=== PATIENT | female | born 1950 | race Caucasian/White ===

== ENCOUNTER 2018-03-04 19:28 | Inpatient (IN) | payer MEDICARE ==
[~2018-03-04] VITALS: Ht 170.2 cm; Wt 123.6 kg
[~2018-03-04 19:28] MED LIST: CARVEDILOL25 MG PO; GABAPENTIN600 MG PO; LISINOPRIL10 MG PO; METFORMIN HCL1000 M1 PO
--- OUTSIDE RECORDS SUMMARY | 2018-03-04 19:30 | XMS REPORT | Clinical Summary ---
Author Author [facility] Organization [facility] Address Unknown Phone Unavailable Care Team Providers Care Human Resources Officer Name Role Phone Sara Jones MD PCP Allergies Active Allergy Reactions Severity Noted Date Comments Cyclobenzaprine Anaphylaxis High Latex Rash Low 03/31/2017 Morphine Anaphylaxis High Nsaids (Non-Steroidal Hives 03/31/2017 Anti-Inflammatory Drug) Tramadol Anaphylaxis High 03/31/2017 Current Medications Prescription Sig. Disp. Refills Start End Date Status Date furosemide (LASIX) 80 mg 80 mg 2 (two) times a 02/23/20 Active tablet day. 1 po bid 17 gabapentin (NEURONTIN) Take 800 mg by mouth 3 02/28/20 Active 800 mg tablet (three) times a day. 1 po 17 tid glimepiride (AMARYL) 4 MG Take 4 mg by mouth 2 02/23/20 Active tablet (two) times a day. 1 po 17 bid LANTUS SOLOSTAR 100 Inject 70 Units under the 02/10/20 Active unit/mL injection (pen) skin nightly. qd 17 lisinopril Take 5 mg by mouth daily. 02/23/20 Active (PRINIVIL,ZESTRIL) 5 mg 1 po qd 17 tablet metFORMIN (GLUCOPHAGE) 2 po bid 01/07/20 Active 500 mg tablet 17 nortriptyline (PAMELOR) Take 10 mg by mouth 3 03/10/20 Active 10 MG capsule (three) times a day. 1 po 17 tid pantoprazole (PROTONIX) Take 40 mg by mouth 03/10/20 Active 40 MG EC tablet daily. 1 po qd 17 LYRICA 50 mg capsule Take 50 mg by mouth 2 03/10/20 Active (two) times a day. 1 po 17 bid sertraline (ZOLOFT) 50 MG TAKE ONE (1) TAB(S) ONCE 3 03/22/20 Active tablet A DAY BY MOUTH FOR 30 17 DAYS. sulfamethoxazole-trimetho Take 1 tablet by mouth 02/29/20 Active prim (BACTRIM DS) 800-160 once. 1 po bid 17 mg per tablet INSULIN NPH HUM/REG Inject 50 Units under the Active INSULIN HM (HUMULIN 70/30 skin 2 (two) times a day. SUBQ) thyroid, pork, (ARMOUR Take 60 mg by mouth Active THYROID) 60 mg tablet daily. potassium chloride Take 10 mEq by mouth Active (KLOR-CON 10) 10 MEQ CR daily. Pt states she tablet takes it when her legs start to cramp aspirin (ECOTRIN) 81 MG Take 81 mg by mouth Active enteric coated tablet daily. KRILL OIL ORAL Take 1 capsule by mouth Active daily. VITAMIN B COMPLEX VIT C Take by mouth daily. Active NO.4 (SUPER B COMPLEX + C ORAL) metoprolol succinate XL TAKE ONE (1) TABLET(S) BY 4 04/08/20 Active (TOPROL-XL) 50 mg 24 hr MOUTH NIGHTLY. 17 tablet metOLazone (ZAROXOLYN) TAKE ONE (1) TABLET(S) BY 0 04/06/20 Active 2.5 MG tablet MOUTH ONCE DAILY 17 NEEDED IF WEIGHT GOES UP 2 TO 3 POUNDS OR NEEDED IF SWELLING IS BAD. ALPRAZolam (XANAX) 0.5 MG Take 0.5 mg by mouth Active tablet nightly as needed for anxiety. mupirocin (BACTROBAN) 2 % Apply 1 application Active ointment topically as needed. cholecalciferol, vitamin Take by mouth. Active D3, (VITAMIN D3) 5,000 unit tablet evolocumab (REPATHA Inject 140 mg under the Active SYRINGE) 140 mg/mL skin every 14 (fourteen) syringe injection days. carvedilol (COREG) 3.125 1 po bid 02/25/20 04/13/20 Discontin MG tablet 17 17 ued FOLIC Take by mouth daily. 04/13/20 Discontin ACID/MULTIVIT-MIN/LUTEIN 17 ued (CENTRUM SILVER ORAL) acetaminophen-codeine Take 1-2 tablets by mouth 30 tablet 0 04/25/20 05/05/20 (TYLENOL WITH CODEINE #3) every 4 (four) hours as 17 17 300-30 mg per tablet needed for moderate pain for up to 10 days. 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 (Primary Dx); Knee instability, right; Fall, initial encounter; Contusion of left knee, initial encounter; Contusion of right knee, initial encounter 05/20/2017 Office Visit Orthopedic Surgery Cezar Jordan MD Carpal tunnel syndrome on right (Primary Dx); Trigger finger of right thumb; Trigger finger, right ring finger; Aftercare following surgery 05/06/2017 [facility] Orthopedic Surgery Cezar oJrdan MD Encounter 05/06/2017 Procedure Pass Orthopedic Surgery 05/06/2017 Surgery Orthopedic Surgery Cezar Jordan MD RELEASE, CARPAL TUNNEL 05/06/2017 Procedure Pass Orthopedic Surgery 05/05/2017 Telephone Orthopedic Surgery Joycelyn Lovett MA 05/05/2017 Telephone Orthopedic Surgery Joycelyn Lovett MA 04/25/2017 Pre-Admit Pre-Admission Testing Cezar Jordan MD Preop examination Testing (Primary Dx) Appointment 04/25/2017 Office Visit Orthopedic Surgery Cezar Jordan MD Trigger finger, right ring finger (Primary Dx); Carpal tunnel syndrome on right; Carpal tunnel syndrome, left 04/25/2017 Anesthesia Orthopedic Surgery Varsha Craft, LABOR UTILIZATION SUPERINTENDENT Event 04/13/2017 Procedure visit Neurology Jing Zambrano MD Diabetic polyneuropathy associated with type 2 diabetes mellitus (Primary Dx); Carpal tunnel syndrome, bilateral upper limbs; Lesion of ulnar nerve, bilateral 04/04/2017 Office Visit Orthopedic Surgery Cezar Jordan MD Pain in right hand (Primary Dx); Trigger finger, right ring finger; Primary localized osteoarthrosis of right hand 03/31/2017 Office Visit Neurology Jing Zambrano MD Uncontrolled type 2 diabetes mellitus with other circulatory complication (Primary Dx); Diabetic polyneuropathy associated with type 2 diabetes mellitus; Skin sensation disturbance; Trigger finger of right hand, unspecified finger after 03/03/2017 Family History Medical History Relation Name Comments Diabetes Brother Diabetes Father Heart attack Father Stroke Father Dementia Mother Hypertension Mother Stroke Mother Dementia Sister Diabetes Sister Hypertension Sister Thyroid disease Sister Relation Name Status Comments Brother Father Mother Sister Social History Tobacco Use Types Packs/Day Years Used Date Passive Smoke Exposure - 48 Never Smoker Smokeless Tobacco: Never Used Alcohol Use Drinks/Week oz/Week Comments No Sex Assigned at Date Recorded Not on file Last Filed Vital Signs Vital Sign Reading Time Taken Blood Pressure 118/70 05/06/2017 10:36 AM CDT Pulse 69 05/06/2017 10:36 AM CDT Temperature 36.7 C (98 F) 05/06/2017 10:36 AM CDT Respiratory Rate 18 05/06/2017 10:36 AM CDT Oxygen Saturation 100% 05/06/2017 10:36 AM CDT Inhaled Oxygen - - Concentration Weight 125 kg (276 lb 7 oz) 05/06/2017 7:15 AM CDT Height 170.2 cm (5' 7") 05/06/2017 7:15 AM CDT Body Mass Index 43.3 05/06/2017 7:15 AM CDT Plan of Treatment Health Maintenance Due Date Last Done Comments FOOT EXAM 1962 OPHTHALMOLOGY EXAM 1962 URINE MICROALBUMIN 1962 PAP SMEAR 1973 COLONOSCOPY 2002 MAMMOGRAM 2002 SHINGRIX VACCINE (#1) 2002 ZOSTER VACCINE 2012 PNEUMOCOCCAL 2017 POLYSACCHARIDE VACCINE AGE 65 AND OVER PNEUMOCOCCAL-13 2017 INFLUENZA VACCINE 05/31/2018 Procedures Procedure Name Priority Date/Time Associated Diagnosis Comments RELEASE, TRIGGER 05/06/2017 Carpal tunnel syndrome on FINGER-RING/THUMB 8:30 AM CDT right RELEASE, CARPAL TUNNEL 05/06/2017 Carpal tunnel syndrome on 8:30 AM CDT right ORTHOPEDIC INJURY Routine 04/04/2017 Trigger finger, right Results for this TREATMENT 10:44 AM CDT ring finger procedure are in the results section. [place] INJECT TENDON Routine 04/04/2017 Trigger finger, right Results for this SHEATH/LIGAMENT 10:44 AM CDT ring finger procedure are in the results section. after 03/03/2017 Results * XR Knee 1 Or 2 Vw Bilateral (08/09/2017 3:25 PM) Specimen Performing Laboratory [facility] [address] [place] [address] Narrative AP and lateral of the left and right knee show bilateral total knee replacement cemented femoral, tibial and patellar components in satisfactory position alignment. There is no significant wear of either knee. * ECG Pre/Post Op (04/25/2017 2:22 PM) Component Value Ref Range Ventricular rate 71 Atrial rate 71 QRSD interval 176 QT interval 504 QTC interval 547 QRS axis 1 263 T wave axis 50 EKG impression AV sequential or dual chamber electronic pacemaker- Specimen Performing Laboratory [facility] [address] [place] [address] * Estimated GFR (04/25/2017 2:13 PM) Component Value Ref Range GFR Non Af Amer 32 (A) mL/min/1.73 m2 GFR Af Amer 39 (A) mL/min/1.73 m2 Comment: Chronic kidney disease: <60 mL/min/1.73m2 Kidney failure: <15 mL/min/1.73m2 The estimated GFR is calculated from the IDMS-traceable Modification of Diet in Renal Disease Equation. The accuracy of the calculation is poor when the creatinine is normal. Calculated values >90 mL/min/1.73m2 are not reported. This equation has not been validated in children (<18 years), women, the elderly (>70 years), or ethnic groups other than Caucasians and Americans. Specimen Performing Laboratory Plasma specimen [facility] DEPARTMENT OF PATHOLOGY AND GENOMIC MEDICINE [address] [place] [id number] * CBC hemogram (04/25/2017 2:13 PM) Component Value Ref Range WBC 10.23 4.50 - 11.00 k/uL RBC 3.73 (L) 4.20 - 5.50 m/uL HGB 11.3 (L) 12.0 - 16.0 g/dL HCT 36.1 (L) 37.0 - 47.0 % MCV 96.8 82.0 - 100.0 fL MCH 30.3 27.0 - 34.0 pg MCHC 31.3 31.0 - 37.0 g/dL RDW - SD 50.4 37.0 - 55.0 fL MPV 9.8 8.8 - 13.2 fL Platelet count 324 150 - 400 k/uL Nucleated RBC 0.00 /100 WBC Specimen Performing Laboratory Blood [facility] DEPARTMENT OF PATHOLOGY AND GENOMIC MEDICINE [address] [place] [address] * Hemoglobin A1c (04/25/2017 2:13 PM) Component Value Ref Range Hemoglobin A1C 8.1 (H) 4.0 - 5.6 % Comment: HbA1c cutoffs for diagnosing diabetes: 4.0% - 5.6%=normal 5.7% - 6.4%=increased risk for diabetes (prediabetes) >=6.5%=diabetes Goals for glycemic control (ADA 2016) < 7.0% Target for non adults with diabetes. More or less stringent targets may be appropriate for individual patients. <7.5% Target for Children and adolescents with type 1 diabetes. Specimen Performing Laboratory Blood [facility] DEPARTMENT OF PATHOLOGY AND GENOMIC MEDICINE [address] [place] [address] * Comprehensive metabolic panel (04/25/2017 2:13 PM) Component Value Ref Range Sodium 142 135 - 148 mEq/L Potassium 4.3 3.5 - 5.0 mEq/L Chloride 100 98 - 112 mEq/L CO2 25 24 - 31 mEq/L Anion gap 17 (H) 7 - 15 mEq/L Comment: Starting from January , anion gap calculation no longer incorporates potassium. Please note the change. BUN 25 (H) 8 - 23 mg/dL Creatinine 1.6 (H) 0.5 - 0.9 mg/dL Glucose 106 (H) 65 - 99 mg/dL Calcium 8.9 8.8 - 10.2 mg/dL Protein 7.1 6.3 - 8.3 g/dL Comment: [place] 4.6-7.0 g/dL 1 week 4.4-7.6 g/dL 7 months-1year 5.1-7.3 g/dL 1-2 years 5.6-7.5 g/dL >3 years 6.0-8.0 g/dL 18-150 6.3-8.3 g/dL Albumin 3.5 3.5 - 5.0 g/dL A/G ratio 1.0 0.7 - 3.8 Alkaline phosphatase 51 35 - 104 U/L AST 30 10 - 35 U/L ALT 32 5 - 50 U/L Total bilirubin <0.2 0.0 - 1.2 mg/dL Specimen Performing Laboratory Plasma specimen [facility] DEPARTMENT OF PATHOLOGY AND GENOMIC MEDICINE [address] [place] [address] * Hand/Upper Extremity Injection/Arthrocentesis (04/04/2017 10:44 AM) Narrative Cezar Jordan MD 04/04/2017 10:44 AM Hand/Upper Extremity Injection/Arthrocentesis Date/Time: 04/04/2017 10:40 AM Consent given by: patient Site marked: site marked Timeout: Immediately prior to procedure a time out was called to verify the correct patient, procedure, equipment, system support administrator and site/side marked as required Supporting Documentation Indications: pain and therapeutic Procedure Details Condition: trigger finger Site: R ring finger Location: - R ring A1 Preparation: Patient was prepped and draped in the usual sterile fashion Right side: Needle size: 25 G Right thumb medications administered: 0.5 mL lidocaine 10 mg/mL (1 %); 3 mg betamethasone acet,sod phos 6 mg/mL Right ring finger medications administered: 0.5 mL lidocaine 10 mg/mL (1 %); 3 mg betamethasone acet,sod phos 6 mg/mL Patient tolerance: patient tolerated the procedure well with no immediate complications Injection Type: tendon sheath Platelet Rich Plasma Used: no PRP UsedFluoroscopic Needle Guidance Used: no fluoroscopic needle guidance * ORTHOPEDIC INJURY TREATMENT (04/04/2017 10:44 AM) Narrative Cezar Jordan MD 04/04/2017 10:44 AM Orthopedic Injury Treatment Date/Time: 04/04/2017 10:43 AM Performed by: CEZAR JORDAN Authorized by: CEZAR JORDAN Consent given by: patient Site marked: site marked Timeout: Immediately prior to procedure a time out was called to verify the correct patient, procedure, equipment, system support administrator and site/side marked as required Injury Location details: right ring finger Pre-procedure assessment Distal perfusion: normal Distal sensation: normal Procedure Manipulation performed? no manipulation performed Anesthetics: local anesthesia not used Immobilization: splint Splint/Brace type: stack splint Post-procedure assessment Distal perfusion: normal Distal sensation: normal Patient tolerance: patient tolerated the procedure well with no immediate complications * XR Hand 3+ Vw Right (04/04/2017 10:06 AM) Specimen Performing Laboratory [facility] [address] [place] [address] Narrative X-rays of theright hand are done.PA, lateral, oblique xrays demonstrate no evidence of a fracture, dislocation.There is moderate first carpometacarpal joint arthritis.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 after 03/03/2017 Insurance Payer Benefit Subscriber ID Type Phone Address Plan / Group MEDICARE MEDICARE xxxxxxxxxx Medicare [employer] [place], [place] PART A AND B COMMERCIAL MISC MISC xxxxxxxxxxxxxx Commercial COMMERCIAL ANNIE HENDERSON Personal/F Self 1950 Home: [employer] [facility] [place] [address]
[2018-03-04] MEDS ORDERED: CEFTRIAXONE SOD 1 GM VIAL IV ONE (20:45)
[2018-03-04] MEDS ORDERED: SODIUM CHLORIDE 0.9% 1000ML 1,000 ML IV ONE (20:45)
[2018-03-04] MEDS ORDERED: ONDANSETRON HCL 4 MG ORAL DISINTEGRATING TAB PO ONE (20:45)
[2018-03-04] MEDS: ACETAMINOPHEN 1000 MG/100 ML IV STA ×2 (20:52→20:53)
[2018-03-04 21:39] LABS: BASOPHILS # (AUTO) 0.1 (0.0-0.1); BASOPHILS % 0.3 % (0.0-1.0); EOSINOPHILS # (AUTO) 0.1 (0.0-0.4); EOSINOPHILS % 0.5 % (0.0-6.0); HEMATOCRIT 35.4 % (34.2-44.1); HEMOGLOBIN 11.9 g/dL (12.0-16.0); LYMPHOCYTES # (AUTO) 0.9 (1.0-3.2); LYMPHOCYTES % 5.7 % (18.0-39.1); MEAN CORPUSCULAR HEMOGLOBIN 29.9 pg (28-32); MEAN CORPUSCULAR HGB CONC 33.6 g/dL (31-35); MEAN CORPUSCULAR VOLUME 88.9 fL (81-99); MONOCYTES # (AUTO) 0.6 (0.2-0.8); MONOCYTES % 3.7 % (4.4-11.3); NEUTROPHILS # (AUTO) 13.7 (2.1-6.9); PLATELET COUNT 335 x10e3/uL (140-360); RED BLOOD COUNT 3.98 x10e6/uL (3.6-5.1)
[2018-03-04 21:52] LABS: ALBUMIN 3.1 g/dL (3.5-5.0); ALBUMIN/GLOBULIN RATIO 0.8 (0.8-2.0); ANION GAP 19.9 mmol/L (8-16); CREATININE, SERUM 1.45 mg/dL (0.57-1.11); POTASSIUM 3.9 mmol/L (3.5-5.1)
--- NOTE | 2018-03-04 21:56 | Diagnostic Imaging Report ---
EXAM: CHEST SINGLE (PORTABLE), AP 1 view INDICATION: Shortness of breath COMPARISON: None FINDINGS: LINES/TUBES: Left approach cardiac device. LUNGS: No consolidations or edema. PLEURA: No effusions or pneumothorax. HEART AND MEDIASTINUM: Normal size and contour. Central vascular congestion. Median sternotomy wires. BONES AND SOFT TISSUES: No acute findings. IMPRESSION: No acute thoracic abnormality. Signed by: Dr. Rita Arciniega M.D. on 03/04/2018 9:52 PM
[2018-03-04] MEDS ORDERED: INSULIN REGULAR, HUMAN 100 UNIT/1 ML 3ML VIAL SQ ONE ×2 (22:30→23:45)
[2018-03-04 22:46] LABS: CLARITY,URINE SL CLOUDY (CLEAR); COLOR,URINE YELLOW (YELLOW)
[2018-03-04 22:47] LABS: BILIRUBIN,URINE NEGATIVE (NEGATIVE); KETONES,URINE NEGATIVE (NEGATIVE); LEUKOCYTE ESTERASE ,URINE TRACE (NEGATIVE); NITRITE,URINE POSITIVE (NEGATIVE); PROTEIN,URINE DIPSTICK NEGATIVE (NEGATIVE); URINE UROBILINOGEN 0.2 mg/dL (0.2 - 1)
[2018-03-04 22:48] LABS: BACTERIA,URINE MODERATE /HPF; EPITHELIAL CELLS,URINE FEW /LPF; RBC,URINE 0-5 /HPF (0-5)
[2018-03-04] MEDS ORDERED: METFORMIN HCL500 MG PO (23:16)
[2018-03-04] MEDS ORDERED: GLIMEPIRIDE2 MG PO (23:17)
[2018-03-04] MEDS ORDERED: NOVOLOG MI100 UNIT/1 SC (23:17)
[2018-03-04] MEDS ORDERED: COREG3.125 MG PO (23:18)
[2018-03-04] MEDS ORDERED: LISINOPRIL2.5 MG PO (23:18)
[2018-03-04] MEDS ORDERED: GABAPENTIN400 MG PO (23:19)
[2018-03-04] MEDS ORDERED: SERTRALINE HCL50 MG PO (23:19)
[2018-03-04] MEDS ORDERED: PANTOPRAZOLE SO40 MG PO (23:19)
[2018-03-04] MEDS ORDERED: LASIX40 MG PO (23:20)
[2018-03-04] MEDS ORDERED: ARMOUR THYROID60 MG PO (23:20)
[2018-03-04] MEDS ORDERED: POTASSIUM CHLO10 ME1 PO (23:20)
[2018-03-04] MEDS ORDERED: ASPIR 8181 MG PO (23:21)
[2018-03-04] MEDS ORDERED: MAGNESIUM OXID400 MG PO (23:21)
[2018-03-04] MEDS ORDERED: B COMPLEX1 EACH PO (23:22)
[2018-03-04] MEDS ORDERED: SUPER B COMPLE1 EACH PO (23:23)
[2018-03-04] MEDS ORDERED: METOPROLOL SUCC25 MG PO (23:23)
[2018-03-04] MEDS ORDERED: DEXTROSE 50% SYRINGE 50 ML IV PRN (23:30)
[2018-03-04] MEDS ORDERED: CEFTRIAXONE SOD 1 GM VIAL IV SCH (23:30)
--- OUTSIDE RECORDS SUMMARY | 2018-03-04 23:37 | XMS REPORT ---
Author Author [facility] Address Unknown Phone Unavailable Care Team Providers Care Cad Intern Name Role Phone KIANNA ALFREDO Unavailable Unavailable Problems This patient has no known problems. Allergies, Adverse Reactions, Alerts This patient has no known allergies or adverse reactions. Medications This patient has no known medications. Results Test Description Test Time Test Comments Text Results Atomic Results Result Comments CHEST SINGLE (PORTABLE) [place] [address] Patient Name: ANNIE GOINS MR #: [id number] : 1950 Age/Sex: 67/F Req #: [id number] Adm Physician: Ordered by: KIANNA ALFREDO MD Report #: [id number] Location: ER Room/Bed: ___ Procedure: [id number] DX/CHEST SINGLE (PORTABLE) Exam Date: Exam Time: REPORT STATUS: Signed EXAM: CHEST SINGLE ( PORTABLE), AP 1 view INDICATION: Shortness of breath COMPARISON: None FINDINGS: LINES/TUBES: Left approach cardiac device. LUNGS: No consolidations or edema. PLEURA: No effusions or pneumothorax. HEART AND MEDIASTINUM: Normal size and contour. Central vascular congestion. Median sternotomy wires. BONES AND SOFT TISSUES: No acute findings. IMPRESSION: No acute thoracic abnormality. Signed by: Dr. Naisr Jacobsen M.D. on 03/04/2018 9:52 PM Dictated By: NASIR JACOBSEN MD 53 Transcribed By: GRAHAM on 03/04/182151 COPY TO: KIANNA ALFREDO MD
--- OUTSIDE RECORDS SUMMARY | 2018-03-04 23:37 | XMS REPORT | Clinical Summary ---
Author Author [facility] Organization [facility] Address Unknown Phone Unavailable Care Team Providers Care [employer] Name Role Phone Sara Jones MD PCP [...] right ring finger; Aftercare following surgery 05/06/2017 [facility] Orthopedic Surgery Cezar Jordan MD Encounter 05/06/2017 Procedure Pass Orthopedic Surgery [...] left 04/25/2017 Anesthesia Orthopedic Surgery Varsha Craft, INSURANCE SALES REPRESENTATIVE Event 04/13/2017 Procedure visit Neurology Jing Zambrano [...] finger procedure are in the results section. [place] INJECT TENDON Routine 04/04/2017 Trigger finger, right Results for this SHEATH/LIGAMENT 10:44 AM CDT ring finger procedure are in the results section. after 03/03/2017 Results * XR Knee 1 Or 2 Vw Bilateral (08/09/2017 3:25 PM) Specimen Performing Laboratory [facility] [address] [place] [address] Narrative AP and lateral of the left [...] dual chamber electronic pacemaker- Specimen Performing Laboratory [facility] [address] [place] [address] * Estimated GFR (04/25/2017 2:13 PM) Component [...] and Americans. Specimen Performing Laboratory Plasma specimen [facility] DEPARTMENT OF PATHOLOGY AND GENOMIC MEDICINE [address] [place] [id number] * CBC hemogram (04/25/2017 2:13 PM) Component [...] 0.00 /100 WBC Specimen Performing Laboratory Blood [facility] DEPARTMENT OF PATHOLOGY AND GENOMIC MEDICINE [address] [place] [address] * Hemoglobin A1c (04/25/2017 2:13 PM) Component [...] type 1 diabetes. Specimen Performing Laboratory Blood [facility] DEPARTMENT OF PATHOLOGY AND GENOMIC MEDICINE [address] [place] [address] * Comprehensive metabolic panel (04/25/2017 2:13 PM) [...] Protein 7.1 6.3 - 8.3 g/dL Comment: [place] 4.6-7.0 g/dL 1 week 4.4-7.6 g/dL 7 [...] 1.2 mg/dL Specimen Performing Laboratory Plasma specimen [facility] DEPARTMENT OF PATHOLOGY AND GENOMIC MEDICINE [address] [place] [address] * Hand/Upper Extremity Injection/Arthrocentesis (04/04/2017 10:44 AM) Narrative Cezar Jordan MD 04/04/2017 10:44 AM Hand/Upper Extremity Injection/Arthrocentesis Date/Time: 04/04/2017 10:40 AM Consent given by: patient Site marked: site marked Timeout: Immediately prior to procedure a time out was called to verify the correct patient, procedure, equipment, sales support technician and site/side marked as required Supporting Documentation [...] to verify the correct patient, procedure, equipment, sales support technician and site/side marked as required Injury Location [...] (04/04/2017 10:06 AM) Specimen Performing Laboratory [facility] [address] [place] [address] Narrative X-rays of theright hand are done.PA, lateral, oblique xrays demonstrate no evidence of a fracture, dislocation.There is moderate first carpometacarpal joint arthritis.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
[2018-03-04] MEDS ORDERED: LYRICA75 MG PO (23:38)
[2018-03-05] VITALS (8 sets, daily range): BP systolic 127–183; BP diastolic 60–77
[2018-03-05] MEDS: SODIUM CHLORIDE 0.9% 1000ML 1,000 ML IV SCH ×2 (01:13→08:30)
[2018-03-05] MEDS: INSULIN REGULAR, HUMAN 100 UNIT/1 ML 3ML VIAL SQ SCH ×2 (07:30→11:30)
[2018-03-05] MEDS: CARVEDILOL 3.125 MG TAB PO SCH ×2 (08:30→17:06)
[2018-03-05] MEDS: ASPIRIN 81 MG CHEW TAB PO SCH (08:30)
[2018-03-05] MEDS: PREGABALIN 75 MG CAP PO SCH ×2 (08:30→17:06)
[2018-03-05] MEDS: PANTOPRAZOLE SOD 40 MG TABEC PO SCH (08:31)
[2018-03-05] MEDS: LISINOPRIL 2.5 MG TAB PO SCH (08:31)
[2018-03-05] MEDS: MAGNESIUM OXIDE 400 MG TAB PO SCH (08:31)
[2018-03-05] MEDS: GABAPENTIN 400 MG CAP PO SCH ×3 (08:31→21:03)
[2018-03-05] MEDS: THYROID 60 MG TAB PO SCH (08:31)
[2018-03-05 08:40] LABS: BASOPHILS # (AUTO) 0.1 (0.0-0.1); BASOPHILS % 0.5 % (0.0-1.0); EOSINOPHILS # (AUTO) 0.1 (0.0-0.4); EOSINOPHILS % 0.5 % (0.0-6.0); HEMATOCRIT 40.6 % (34.2-44.1); LYMPHOCYTES # (AUTO) 2.1 (1.0-3.2); LYMPHOCYTES % 15.9 % (18.0-39.1); MEAN CORPUSCULAR HEMOGLOBIN 29.3 pg (28-32); MEAN CORPUSCULAR VOLUME 91.4 fL (81-99); MONOCYTES % 7.6 % (4.4-11.3); NEUTROPHILS # (AUTO) 9.7 (2.1-6.9); PLATELET COUNT 295 x10e3/uL (140-360); RED BLOOD COUNT 4.44 x10e6/uL (3.6-5.1)
[2018-03-05] MEDS: ACETAMINOPHEN 325 MG TAB PO PRN (08:42)
[2018-03-05 08:49] LABS: ALBUMIN 3.1 g/dL (3.5-5.0); ALBUMIN/GLOBULIN RATIO 0.7 (0.8-2.0); ANION GAP 14.7 mmol/L (8-16); CALCIUM 9.5 mg/dL (8.4-10.2); CREATININE, SERUM 1.33 mg/dL (0.57-1.11); POTASSIUM 3.7 mmol/L (3.5-5.1)
[2018-03-05] MEDS ORDERED: POTASSIUM CHLORIDE 10 MEQ TABCR PO SCH (09:00)
[2018-03-05] MEDS ORDERED: SERTRALINE HCL 50 MG TAB PO SCH (09:00)
[2018-03-05] MEDS ORDERED: FUROSEMIDE 40 MG TAB PO SCH (09:00)
[2018-03-05] MEDS ORDERED: METOPROLOL SUCCINATE 25 MG TAB XL PO SCH ×2 (09:00→21:00)
[2018-03-05] MEDS ORDERED: DEXTROSE 50% SYRINGE 50 ML IV PRN (12:00)
[2018-03-05] MEDS: CEFEPIME HCL 1 GM VIAL IV SCH ×2 (12:30→23:15)
--- NOTE | 2018-03-05 12:59 | Diagnostic Imaging Report ---
EXAM: CT Abdomen and Pelvis WITHOUT contrast INDICATION: COMPARISON: None. TECHNIQUE: Abdomen and Pelvis was scanned utilizing a multidetector helical scanner without the use of IV contrast. Coronal and sagittal reformations were obtained. IV CONTRAST: None COMPLICATIONS: None RADIATION DOSE: Total DLP: 918 mGy*cm Estimated effective dose: (DLP x 0.015 x size factor) mSv CTDIvol has been reviewed. It is below the limits set by the Radiation Protocol Committee (RPC). FINDINGS: Abdomen: Lung Bases: Atelectasis. ICD partially visualized. Solid Organs: Nonenhanced images of the liver, spleen, and pancreas are unremarkable. Fullness of the adrenal glands, asymmetric to the left. No hydronephrosis or renal calculi. Upper GI Tract: No small bowel obstructive changes. Vascularity: Mild vascular calcifications with no aortic aneurysm. Lymph Nodes: Scattered small upper abdominal lymph nodes, not enlarged by size criteria. Other: None. Pelvis: Bladder: Mild wall thickening statistically due to decompression. Other: Within limitations of nonenhanced exam, uterus and adnexa grossly unremarkable. Colon: Moderate proximal stool. Diverticulosis sigmoid colon without distinct CT evidence of diverticulitis. Bones: Degenerative changes spine, most notably L2-3. IMPRESSION: 1. No renal or ureteral calculi. 2. Nonspecific mesenteric lymph nodes, not distinctly enlarged by size criteria. Mesenteric adenitis or panniculitis could have this appearance. 3. Mild thickening urinary bladder wall likely due to decompression. Clinical and laboratory correlation for cystitis recommended. 4. Diverticulosis without CT evidence of diverticulitis. Signed by: Dr. Brennan Meredith MD on 03/05/2018 12:55 PM
--- NOTE | 2018-03-05 14:37 | History and Physical ---
PRIMARY CARE PROVIDER: in [place]. CHIEF COMPLAINT: Fever, urinary tract infection, and sepsis. HISTORY: A 67-year-old female used to see Dr. Davis Gonzalez for recurrent urinary tract infection. Apparently, she moved to [place] to stay with one of her daughter and apparently the prophylaxis medication Bactrim was stopped. The patient came in now with a profound urinary tract infection associated with high fever and pelvic pain. Patient placed on antibiotics. She is admitted for further evaluation and treatment. PAST MEDICAL HISTORY: Recurrent urinary tract infection with urinary bladder problem, diabetes type 2 on insulin therapy, hyperlipidemia, morbid obesity, hypothyroidism, hypertension, and coronary artery disease with cardiomyopathy. PAST SURGICAL HISTORY: Coronary artery bypass 3-vessel 2 years ago. Congestive heart failure. AICD to the left chest. SOCIAL HISTORY: Patient now moved down to [place] from [place]. She does not smoke or use alcohol. No recreational drug use. ALLERGIES: TO MORPHINE AND MARCAINE. HOME MEDICATIONS: List is reviewed. REVIEW OF SYSTEMS: Dysuria, increased urinary frequency, fever, generalized weakness, and pelvic pain. PHYSICAL EXAMINATION VITAL SIGNS: Temperature is 102.8, blood pressure 156/71, pulse rate is 81, and respirations 18. GENERAL: The patient is awake and alert, not in any distress. HEENT: Normocephalic, atraumatic. Anicteric. NECK: Supple grossly. PULMONARY: Clear bilaterally. CARDIOVASCULAR: Regular rate and rhythm. ABDOMEN: Soft, morbidly obese, and suprapubic tenderness. No rebound or guarding. No CVA tenderness. EXTREMITIES: No cyanosis, but 1+ edema. Due to obesity, depending edema most likely. NEUROLOGIC: No focal deficit. Moving all extremities. LABORATORY AND DIAGNOSTIC STUDIES: Sodium is 132, potassium 3.9, chloride 96, bicarb 20, BUN 14, creatinine 1.5, and glucose 481. Urinalysis, 3+ glucose, positive for leukocyte esterase, positive nitrite, and moderate bacteria. WBC 15.4, hemoglobin 11.9, hematocrit 35.4, and platelets is 333. Chest x-ray unremarkable. IMPRESSION 1. Sepsis with fever, urinary tract infection, and pain. 2. Urinary tract infection with possible pyelonephritis. 3. Multiple chronic baseline problems. PLAN: Continue home medication with adjustment. Hold off metformin and Glyburide. Continue with insulin sliding scale coverage. Antibiotics of cefepime 1 gram q.12. Consultation with Dr. Gonzalez. CT of the abdomen and pelvis without IV contrast. Pain control. We will discontinue IV fluids after rehydration. Job#: [id number] VAS
[2018-03-05] MEDS: INSULIN LISPRO 100 UNIT/1 ML 3ML VIAL SQ SCH ×2 (16:30→21:03)
[2018-03-05] MEDS ORDERED: NON-FORMULARY MEDICATION (Insuln Asp Prt/Insulin Aspart (Novolog Mix 70-30 Flexpen Syrn) 6 SC SCH (16:30)
[2018-03-05] MEDS: INSULIN ASPART 70/30 100 UNITS/ML VIAL SC SCH (16:30)
--- NOTE | 2018-03-05 18:29 | Consultation ---
DATE OF CONSULTATION: March 05, 2018 UROLOGY CONSULTATION REASON FOR CONSULTATION: Complicated urinary tract infection and pyelonephritis. HISTORY OF PRESENT ILLNESS: Reema Henderson is a 67-year-old woman with a longstanding urological history of recurrent urinary tract infections. The patient does report also some mild stress and more urge-type urinary incontinence. The patient long ago was a patient of Dr. Marquez. However, since she has moved, was a urological patient of Dr. Domonique Mott in [place], [place], and also a patient of Dr. Glenna Weiss in [place], [place]. The patient due to failing health has moved in more recently with her daughter, who lives in [place]. The patient had some dysuria and signs of urinary tract infection. She went to the emergency room and was subsequently admitted. The patient denies any hematuria or urolithiasis but has had an extensive workup for her urinary tract infections by multiple urologists. PAST MEDICAL AND SURGICAL HISTORY 1. 5, para 5, three by spontaneous vaginal deliveries, 2 by section and 1 miscarriage. 2. Coronary artery disease, status post coronary artery bypass for 3 vessels [place] [address] Cam Rose at [facility]. 3. AICD placement. 4. Type-2 diabetes mellitus. 5. Hyperlipidemia. 6. Morbid obesity. 7. Hypothyroidism. 8. Hypertension. 9. Cardiomyopathy. CURRENT MEDICATIONS: Please refer to the MAR. ALLERGIES: MORPHINE AND MARCAINE. SOCIAL HISTORY: The patient denies smoking, ethanol and drug use. 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 FAMILY HISTORY: Noncontributory to urological problems. REVIEW OF SYSTEMS: As discussed above in the history of present illness and past medical history, otherwise negative for all systems. PHYSICAL EXAMINATION GENERAL: Very pleasant, 67-year-old woman lying in bed in no apparent distress. VITAL SIGNS: She is currently afebrile, and the vital signs are currently stable. ABDOMEN: Soft. Nondistended and nontender without costovertebral angle tenderness. The kidneys are not palpable without hepatosplenomegaly. The patient is obese. OTHER: For the remaining physical examination systems, please refer to the admission history and physical on the chart and the ER T sheet. LABORATORY STUDIES: CT scan of the abdomen and pelvis revealed fullness of the adrenal glands. No kidney stones and mild thickening of the bladder due to decompression and possible cystitis. Urine culture is pending. Blood cultures are pending. White blood cell count was 15,370. Today it is better at 12,980. Hemoglobin was low at 11.9. Today it is normal at 13. Platelets are normal at 295,000. Patient's sodium is slightly low at 134. Creatinine is slightly elevated at 1.33. Glucose is elevated. Urinalysis is significant for pyuria, bacteriuria, and glycosuria. ASSESSMENT 1. Pyelonephritis with febrile urinary tract infection. 2. Recurrent urinary tract infection. 3. Mixed-type urinary incontinence. 4. Dysuria. 5. Obesity. 6. Anemia that is mild. 7. Leukocytosis that is improving. 8. Hyponatremia that is mild. 9. Chronic renal insufficiency that is mild. 10. Glycosuria. PLAN 1. Await urine culture and sensitivity. 2. Treat with culture-specific antibiotics. 3. Ongoing urological followup is a must. We will attempt to get prior urological records once the patient is an outpatient in the office and determine which additional testing is necessary. Thank you very much for involving us in the care of your patient. We will be happy to follow her along with you, as well as an outpatient. Job#: [id number] NASIR
[2018-03-05] MEDS: SERTRALINE HCL 50 MG TAB PO SCH (21:03)
[2018-03-06] MEDS: ACETAMINOPHEN 325 MG TAB PO PRN (00:34)
[2018-03-06 01:01] VITALS: BP 119/52
[2018-03-06 05:44] VITALS: BP 102/50
[2018-03-06 06:52] LABS: BASOPHILS % 0.3 % (0.0-1.0); EOSINOPHILS # (AUTO) 0.2 (0.0-0.4); EOSINOPHILS % 1.8 % (0.0-6.0); HEMATOCRIT 30.8 % (34.2-44.1); HEMOGLOBIN 10.1 g/dL (12.0-16.0); LYMPHOCYTES # (AUTO) 2.9 (1.0-3.2); MEAN CORPUSCULAR HEMOGLOBIN 29.2 pg (28-32); MEAN CORPUSCULAR HGB CONC 32.8 g/dL (31-35); MONOCYTES # (AUTO) 1.2 (0.2-0.8); MONOCYTES % 10.9 % (4.4-11.3); NEUTROPHILS # (AUTO) 6.3 (2.1-6.9); NEUTROPHILS % 59.1 % (38.7-80.0); PLATELET COUNT 280 x10e3/uL (140-360); RED BLOOD COUNT 3.46 x10e6/uL (3.6-5.1); RED CELL DISTRIBUTION WIDTH 14.2 % (11.7-14.4)
[2018-03-06 07:22] LABS: MAGNESIUM 1.6 MG/DL (1.3-2.1)
[2018-03-06 07:31] LABS: THYROID STIMULATING HORMONE 0.058 uIU/mL (0.350-4.940)
[2018-03-06 07:46] LABS: ANION GAP 11.6 mmol/L (8-16); CALCIUM 8.6 mg/dL (8.4-10.2); CREATININE, SERUM 1.15 mg/dL (0.57-1.11); POTASSIUM 3.6 mmol/L (3.5-5.1)
[2018-03-06 08:00] VITALS: BP 111/53
[2018-03-06] MEDS: INSULIN LISPRO 100 UNIT/1 ML 3ML VIAL SQ SCH ×4 (08:30→21:05)
[2018-03-06] MEDS: INSULIN ASPART 70/30 100 UNITS/ML VIAL SC SCH ×2 (08:30→17:35)
[2018-03-06] MEDS: ASPIRIN 81 MG CHEW TAB PO SCH (08:59)
[2018-03-06] MEDS: THYROID 60 MG TAB PO SCH (08:59)
[2018-03-06] MEDS: PREGABALIN 75 MG CAP PO SCH ×2 (08:59→21:18)
[2018-03-06] MEDS: LISINOPRIL 2.5 MG TAB PO SCH (08:59)
[2018-03-06] MEDS: MAGNESIUM OXIDE 400 MG TAB PO SCH (08:59)
[2018-03-06] MEDS: PANTOPRAZOLE SOD 40 MG TABEC PO SCH (08:59)
[2018-03-06] MEDS: GABAPENTIN 400 MG CAP PO SCH ×3 (08:59→21:17)
[2018-03-06] MEDS: CARVEDILOL 3.125 MG TAB PO SCH ×2 (08:59→17:35)
[2018-03-06 12:00] VITALS: BP 115/59
[2018-03-06] MEDS: CEFEPIME HCL 1 GM VIAL IV SCH ×2 (12:05→23:01)
[2018-03-06 16:00] VITALS: BP 101/50
[2018-03-06 20:00] VITALS: BP 123/58
[2018-03-06] MEDS: SERTRALINE HCL 50 MG TAB PO SCH (21:17)
[2018-03-07] VITALS: BP 108/53
[2018-03-07] MEDS: INSULIN ASPART 70/30 100 UNITS/ML VIAL SC SCH ×2 (08:00→17:17)
[2018-03-07] MEDS: INSULIN LISPRO 100 UNIT/1 ML 3ML VIAL SQ SCH ×4 (08:00→21:00)
[2018-03-07 08:37] VITALS: BP 111/54
[2018-03-07] MEDS: MAGNESIUM OXIDE 400 MG TAB PO SCH (09:32)
[2018-03-07] MEDS: CARVEDILOL 3.125 MG TAB PO SCH ×2 (09:32→17:18)
[2018-03-07] MEDS: ASPIRIN 81 MG CHEW TAB PO SCH (09:32)
[2018-03-07] MEDS: GABAPENTIN 400 MG CAP PO SCH ×3 (09:32→21:52)
[2018-03-07] MEDS: PREGABALIN 75 MG CAP PO SCH ×2 (09:32→21:52)
[2018-03-07] MEDS: THYROID 60 MG TAB PO SCH (09:33)
[2018-03-07] MEDS: PANTOPRAZOLE SOD 40 MG TABEC PO SCH (09:33)
[2018-03-07] MEDS: LISINOPRIL 2.5 MG TAB PO SCH (09:33)
[2018-03-07 12:13] VITALS: BP 133/61
[2018-03-07] MEDS: CEFEPIME HCL 1 GM VIAL IV SCH ×2 (12:38→22:35)
[2018-03-07 16:00] VITALS: BP 130/59
[2018-03-07] MEDS: FUROSEMIDE 40 MG TAB PO SCH (17:39)
[2018-03-07 20:00] VITALS: BP 128/62
[2018-03-07] MEDS: SERTRALINE HCL 50 MG TAB PO SCH (21:52)
[2018-03-08] VITALS: BP 132/62
[2018-03-08 04:00] VITALS: BP 131/63
[2018-03-08 06:24] LABS: BASOPHILS # (AUTO) 0.1 (0.0-0.1); BASOPHILS % 0.8 % (0.0-1.0); EOSINOPHILS # (AUTO) 0.2 (0.0-0.4); EOSINOPHILS % 2.1 % (0.0-6.0); HEMATOCRIT 30.5 % (34.2-44.1); HEMOGLOBIN 9.8 g/dL (12.0-16.0); LYMPHOCYTES # (AUTO) 3.4 (1.0-3.2); LYMPHOCYTES % 35.2 % (18.0-39.1); MEAN CORPUSCULAR HEMOGLOBIN 29.3 pg (28-32); MEAN CORPUSCULAR HGB CONC 32.1 g/dL (31-35); MEAN CORPUSCULAR VOLUME 91.3 fL (81-99); MONOCYTES # (AUTO) 0.9 (0.2-0.8); MONOCYTES % 9.5 % (4.4-11.3); NEUTROPHILS % 50.9 % (38.7-80.0); PLATELET COUNT 293 x10e3/uL (140-360); RED BLOOD COUNT 3.34 x10e6/uL (3.6-5.1); RED CELL DISTRIBUTION WIDTH 14.1 % (11.7-14.4)
[2018-03-08 06:52] LABS: ANION GAP 12.2 mmol/L (8-16); CALCIUM 9.2 mg/dL (8.4-10.2); CREATININE, SERUM 1.06 mg/dL (0.57-1.11); POTASSIUM 4.2 mmol/L (3.5-5.1)
[2018-03-08] MEDS: INSULIN LISPRO 100 UNIT/1 ML 3ML VIAL SQ SCH ×2 (07:30→11:30)
[2018-03-08 08:00] VITALS: BP 111/56
[2018-03-08] MEDS: ASPIRIN 81 MG CHEW TAB PO SCH (08:13)
[2018-03-08] MEDS: INSULIN ASPART 70/30 100 UNITS/ML VIAL SC SCH (08:13)
[2018-03-08 08:14] VITALS: BP 111/56
[2018-03-08] MEDS: THYROID 60 MG TAB PO SCH (08:14)
[2018-03-08] MEDS: PREGABALIN 75 MG CAP PO SCH (08:14)
[2018-03-08] MEDS: FUROSEMIDE 40 MG TAB PO SCH (08:14)
[2018-03-08] MEDS: PANTOPRAZOLE SOD 40 MG TABEC PO SCH (08:14)
[2018-03-08] MEDS: MAGNESIUM OXIDE 400 MG TAB PO SCH (08:14)
[2018-03-08] MEDS: CARVEDILOL 3.125 MG TAB PO SCH (08:14)
[2018-03-08] MEDS: LISINOPRIL 2.5 MG TAB PO SCH (08:14)
[2018-03-08] MEDS: GABAPENTIN 400 MG CAP PO SCH (08:14)
[2018-03-08] MEDS ORDERED: BACTRIM DS TAB1 EACH PO (10:16)
[2018-03-08] MEDS ORDERED: CEFUROXIME250 MG PO (10:16)
--- NOTE | 2018-03-08 10:38 | Discharge Summary ---
GYMNASIUM TEACHER: Dr. Remi Machado. FINAL DIAGNOSES 1. Sepsis. 2. Urinary tract infection with sepsis. 3. Leukocytosis, resolved. 4. Fever, resolved. 5. Hyperglycemia, baseline diabetes, increase in blood sugar secondary to sepsis. SUMMARY: This 67-year-old female came in with sepsis. Patient had a high lactic acid level of 48 and leukocytosis of 15. Urine culture was done post antibiotic. It is unreliable. She had a CT of abdomen and pelvis done that showed nonspecific mesenteric lymph node. Mild thickening of urinary bladder. Diverticulosis without diverticulitis. Patient is stable. Fever and leukocytosis resolved. She is stable. She has recurrent urinary tract infections often. Patient will need to follow up with Dr. Remi Machado for urodynamic or other studies as an outpatient. She will take Ceftin 250 mg twice a day for 10 days then start Bactrim single strength 1 tablet once a day for 90 days. Patient is stable and discharged home today. Follow up as instructed with Dr. Remi Machado and myself. Job#: [id number]
[2018-03-08] MEDS: CEFEPIME HCL 1 GM VIAL IV SCH (11:27)
[2018-03-08 11:46] VITALS: BP 121/60
== END 2018-03-08 12:32 | disposition home or self-care (01) | DRG 872 ==
LOC: ER 19:28 → ERHOLD 23:33 → MED/SURG2 03-05 02:40
PROVIDERS: ADMIT Internal Medicine; ATTEND Internal Medicine
DX: A41.9 Sepsis, unspecified organism (principal); N12 Tubulo-interstitial nephritis, not specified as acute or chronic; Z68.41 Body mass index [BMI] 40.0-44.9, adult; E87.1 Hypo-osmolality and hyponatremia; I13.0 Hypertensive heart and chronic kidney disease with heart failure and stage 1 through stage 4 chronic kidney disease, or unspecified chronic kidney disease; E66.9 Obesity, unspecified; E11.65 Type 2 diabetes mellitus with hyperglycemia; K57.90 Diverticulosis of intestine, part unspecified, without perforation or abscess without bleeding; Z87.440 Personal history of urinary (tract) infections; N39.46 Mixed incontinence; Z95.810 Presence of automatic (implantable) cardiac defibrillator; E66.01 Morbid (severe) obesity due to excess calories; E78.5 Hyperlipidemia, unspecified; E03.9 Hypothyroidism, unspecified; Z79.52 Long term (current) use of systemic steroids; I25.10 Atherosclerotic heart disease of native coronary artery without angina pectoris; Z95.1 Presence of aortocoronary bypass graft; D64.9 Anemia, unspecified; N18.9 Chronic kidney disease, unspecified; I50.9 Heart failure, unspecified
CPT/HCPCS: 36415; 71045; 74176; 80048; 80053; 81001; 82607; 82746; 82948; 83036; 83605; 83735; 84443; 85025; 87040; 87086; 99284; J0692; J0696; J1815; J7030

== ENCOUNTER 2018-03-14 14:37 | Emergency (ER) | payer MEDICARE ==
[~2018-03-14] VITALS: Ht 170.2 cm; Wt 123.4 kg
[~2018-03-14 14:37] MED LIST changes: +ARMOUR THYROID60 MG PO; +ASPIR 8181 MG PO; +B COMPLEX1 EACH PO; +BACTRIM DS TAB1 EACH PO; +CEFUROXIME250 MG PO; +COREG3.125 MG PO; +GABAPENTIN400 MG PO; +GLIMEPIRIDE2 MG PO; +LASIX40 MG PO; +LISINOPRIL2.5 MG PO; +LYRICA75 MG PO; +MAGNESIUM OXID400 MG PO; +METFORMIN HCL500 MG PO; +METOPROLOL SUCC25 MG PO; +NOVOLOG MI100 UNIT/1 SC; +PANTOPRAZOLE SO40 MG PO; +POTASSIUM CHLO10 ME1 PO; +SERTRALINE HCL50 MG PO; +SUPER B COMPLE1 EACH PO
--- OUTSIDE RECORDS SUMMARY | 2018-03-14 14:40 | XMS REPORT | Continuity of Care Document ---
Author Author [facility] Organization [facility] Address [address] [place] [address] Phone Unavailable Care Team Providers Care Tong Hooker Name Role Phone NO, PCP PCP Unavailable Insurance Providers Guarantor Annie Henderson Address [address] [place] [address] Email [email or web address] Payer Medicare A & B Policy Number [id number] Subscriber's Name Annie Henderson Relationship 18 Self / Same As Patient Effective Date 09/30/14 Advance Directives Directive Response Recorded Date/Time Does the patient have an advance directive? No 06/08/14 10:06am If yes, is advance directive on file with [facility]? No 06/08/14 10:06am If not on file with [facility] will patient provide a copy? No 06/08/14 10:06am Do you have a Directive to Physician? No 03/04/18 11:33pm Do you have a Medical Power of Spike Machine Operator? No 03/04/18 11:33pm Do you have an out of hospital Do Not Resuscitate Order? No 03/04/18 11:33pm Do you have any special needs we should be aware of? No 03/04/18 11:33pm Do you have a support person here with you today? No 03/04/18 11:33pm Did patient receive Notice of Privacy Practices? Yes 03/04/18 11:34pm Did patient receive patient rights and responsibilities? Yes 03/04/18 11:34pm Problems Medical Problem Onset Date Status Fever Unknown Sepsis Unknown UTI (urinary tract infection) Unknown Medications Current Home Medications Medication Dose Units Route Directions Days Qty Instructions Start Date Aspirin (Aspir 81) 81 Mg Tablet.dr 81 Mg Oral Daily B Complex With Vitamin C (Super B Complex-Vitamin C) 1 Each Tablet 1 Tab Oral Daily Carvedilol (Coreg) 3.125 Mg Tab 1 Tab Oral Twice A Day Cefuroxime Axetil (Cefuroxime) 250 Mg Tablet 250 Mg Oral Twice A Day Furosemide (Lasix) 40 Mg Tablet 40 Mg Oral Daily 30 Tab Gabapentin 400 Mg Capsule 800 Mg Oral Three Times A Day 30 Cap Glimepiride 2 Mg Tablet 4 Mg Oral Twice A Day Insuln Asp Prt/Insulin Aspart (Novolog Mix 70-30 Flexpen Syrn) 100 Unit/1 Ml Insuln.pen 60 Units Subcutaneously Twice A Day Lisinopril 2.5 Mg Tablet 5 Mg Oral Daily 30 Tab Magnesium Oxide 400 Mg Tablet 800 Mg Oral Daily Metformin Hcl 500 Mg Tablet 1,000 Mg Oral Twice A Day 60 Tab Metoprolol Succinate 25 Mg Tab.er.24h 25 Mg Oral Daily Pantoprazole Sodium (Protonix) 40 Mg Tablet.dr 40 Mg Oral Daily Potassium Chloride 10 Meq Tab.er.prt 10 Meq Oral Daily Pregabalin (Lyrica) 75 Mg Cap 75 Mg Oral Twice A Day 30 Cap Sertraline Hcl 50 Mg Tablet 50 Mg Oral Daily 30 Tab Sulfamethoxazole/Trimethoprim (Bactrim Ds Tablet) 1 Each Tablet 1 Tab Oral Daily 60 Tab Thyroid,Pork ([place] Thyroid) 60 Mg Tablet 60 Mg Oral Daily 30 Tab Vitamin B Complex (B Complex) 1 Each Tablet 1 Tab Oral Past Home Medications Medication Directions Ordered Status Carvedilol 25 Mg Tablet, 25 Mg Oral Twice A Day Discontinued Gabapentin 600 Mg Tablet, 600 Mg Oral Three Times A Day Discontinued Lisinopril 10 Mg Tablet, 10 Mg Oral Daily Discontinued Metformin Hcl (Metformin Hcl Er) 1,000 Mg Tab.er.24, 1000 Mg Oral Bedtime Discontinued Social History Social History Problem Response Recorded Date/Time Onset Date Status Hx Psychiatric Problems No 03/05/2018 2:53am Not Applicable Not Applicable Hx Depression Yes 03/05/2018 2:53am Not Applicable Not Applicable Hx Alcohol Use No 03/05/2018 2:53am Not Applicable Not Applicable Hx Substance Use Treatment No 03/05/2018 2:53am Not Applicable Not Applicable Hx Physical Abuse No 03/05/2018 2:53am Not Applicable Not Applicable Smoking Status Start Date Stop Date Never Smoker Hospital Discharge Instructions No hospital discharge instruction information available. Plan of Care Discharge Date 03/08/18 12:32pm Disposition HOME, SELF-CARE Instructions/Education Provided Pyelonephritis Prescriptions See Medication Section Additional Instructions/Education FOLLOW UP WITH DR. Lakia MESSINA IN 2 WEEKS. TAKE MEDICATION PRESCRIBED. FOLLOW UP WITH DR. BORGES IN 1 WEEK. Functional Status Query Response Date Recorded Assistive Devices Standard Walker Rolling Walker March 05, 2018 3:06am Ambulation Ability Independent March 05, 2018 3:06am Toileting Ability Independent March 06, 2018 6:20pm Allergies, Adverse Reactions, Alerts Allergen Type Severity Reaction Status Last Updated Morphine Allergy Unknown Active 03/04/18 MERCAINE Allergy Unknown Active 03/04/18 Immunizations No immunization information available. Vital Signs Acute Vital Signs Vital Response Date/Time Temperature (Fahrenheit) 98.2 degrees F (97.6 - 99.5) 03/08/2018 11:46am Pulse Pulse Rate (adult) 69 bpm (60 - 90) 03/08/2018 11:46am Respiratory Rate 18 bpm (12 - 24) 03/08/2018 11:46am Blood Pressure 121/60 mm Hg 03/08/2018 11:46am Height 5 ft 7 in 03/04/2018 7:51pm Weight 272.56 lb 03/05/2018 2:53am Body Mass Index 42.7 kg/m^2 03/05/2018 5:31am Results Laboratory Results Test Name Result Units Flags Reference Collection Date/Time Result Date/ Time Comments White Blood Count 9.74 x10e3/uL 4.8-10.8 03/08/2018 5:58am 03/08/2018 6 :36am Red Blood Count 3.34 x10e6/uL L 3.6-5.1 03/08/2018 5:58am 03/08/2018 6: 36am Hemoglobin 9.8 g/dL L 12.0-16.0 03/08/2018 5:58am 03/08/2018 6:36am Hematocrit 30.5 % L 34.2-44.1 03/08/2018 5:58am 03/08/2018 6:36am Mean Corpuscular Volume 91.3 fL 81-99 03/08/2018 5:58am 03/08/2018 6: 36am Mean Corpuscular Hemoglobin 29.3 pg 28-32 03/08/2018 5:58am 03/08/2018 6:36am Mean Corpuscular Hemoglobin Concent 32.1 g/dL 31-35 03/08/2018 5:58am 03/08/2018 6:36am Red Cell Distribution Width 14.1 % 11.7-14.4 03/08/2018 5:58am 2017 6:36am Platelet Count 293 x10e3/uL 140-360 03/08/2018 5:58am 03/08/2018 6: 36am Neutrophils (%) (Auto) 50.9 % 38.7-80.0 03/08/2018 5:58am 03/08/2018 6: 36am Lymphocytes (%) (Auto) 35.2 % 18.0-39.1 03/08/2018 5:58am 03/08/2018 6: 36am Monocytes (%) (Auto) 9.5 % 4.4-11.3 03/08/2018 5:58am 03/08/2018 6: 36am Eosinophils (%) (Auto) 2.1 % 0.0-6.0 03/08/2018 5:58am 03/08/2018 6: 36am Basophils (%) (Auto) 0.8 % 0.0-1.0 03/08/2018 5:58am 03/08/2018 6:36am IM GRANULOCYTES % 1.5 % H 0.0-1.0 03/08/2018 5:58am 03/08/2018 6:36am Neutrophils # (Auto) 5.0 2.1-6.9 03/08/2018 5:58am 03/08/2018 6:36am Lymphocytes # (Auto) 3.4 H 1.0-3.2 03/08/2018 5:58am 03/08/2018 6: 36am Monocytes # (Auto) 0.9 H 0.2-0.8 03/08/2018 5:58am 03/08/2018 6:36am Eosinophils # (Auto) 0.2 0.0-0.4 03/08/2018 5:58am 03/08/2018 6:36am Basophils # (Auto) 0.1 0.0-0.1 03/08/2018 5:58am 03/08/2018 6:36am Absolute Immature Granulocyte (auto 0.15 x10e3/uL H 0-0.1 03/08/2018 5: 58am 03/08/2018 6:36am Urine Color YELLOW YELLOW 03/04/2018 8:12pm 03/04/2018 10:48pm Urine Clarity SL CLOUDY CLEAR 03/04/2018 8:12p 03/04/2018 10:48pm Urine Specific Archer 1.010 1.010-1.025 03/04/2018 8:12p 2017 10:48pm Urine pH 6 5 - 7 03/04/2018 8:12p 03/04/2018 10:48pm Urine Leukocyte Esterase TRACE H NEGATIVE 03/04/2018 8:12p 2017 10:48pm Urine Nitrite POSITIVE H NEGATIVE 03/04/2018 8:12p 03/04/2018 10: 48pm Urine Protein NEGATIVE NEGATIVE 03/04/2018 8:12p 03/04/2018 10:48pm Urine Glucose (UA) 3+ H NEGATIVE 03/04/2018 8:12p 03/04/2018 10:48pm Urine Ketones NEGATIVE NEGATIVE 03/04/2018 8:12p 03/04/2018 10:48pm Urine Urobilinogen 0.2 mg/dL 0.2 - 1 03/04/2018 8:12p 03/04/2018 10: 48pm Urine Bilirubin NEGATIVE NEGATIVE 03/04/2018 8:12p 03/04/2018 10: 48pm Urine Blood TRACE H NEGATIVE 03/04/2018 8:12p 03/04/2018 10:48pm Urine WBC 11-20 /HPF H 0-5 03/04/2018 8:12p 03/04/2018 10:48pm Urine RBC 0-5 /HPF 0-5 03/04/2018 8:12p 03/04/2018 10:48pm Urine Bacteria MODERATE /HPF H NONE 03/04/2018 8:12p 03/04/2018 10: 48pm Urine Epithelial Cells FEW /LPF NONE 03/04/2018 8:12pm 03/04/2018 10: 48pm Sodium Level 142 mmol/L # 136-145 03/08/2018 5:58am 03/08/2018 6:58am Potassium Level 4.2 mmol/L 3.5-5.1 03/08/2018 5:58am 03/08/2018 6:58am Chloride Level 110 mmol/L H 98-107 03/08/2018 5:58am 03/08/2018 6:58am Carbon Dioxide Level 24 mmol/L 22-29 03/08/2018 5:58am 03/08/2018 6: 58am Anion Gap 12.2 mmol/L 8-16 03/08/2018 5:58am 03/08/2018 6:58am Blood Urea Nitrogen 18 mg/dL 7-03/08/2018 5:58am 03/08/2018 6:58am Creatinine 1.06 mg/dL 0.57-1.11 03/08/2018 5:58am 03/08/2018 6:58am BUN/Creatinine Ratio 17 6-03/08/2018 5:58am 03/08/2018 6:58am Estimat Glomerular Filtration Rate 52 ML/MIN L 60- 03/08/2018 5:58am 07/2018 6:58am Ranges were taken from the National Kidney Disease Education Program and the National Kidney Foundation literature. Reference ranges: 60 or greater: Normal 16-59 (for 3 consecutive months): Chronic kidney disease 15 or less: Kidney failure Glucose Level 132 mg/dL H 74-118 03/08/2018 5:58am 03/08/2018 6:58am Calcium Level 9.2 mg/dL 8.4-10.2 03/08/2018 5:58am 03/08/2018 6:58am Bedside Glucose 129 mg/dL H 70-120 03/08/2018 11:14am 03/08/2018 12: 02pm Meter ID: [id number] Hemoglobin A1c Percent 8.9 % H 4.0-7.0 03/06/2018 6:06am 03/06/2018 7: 03am Lactic Acid Level 48.0 MG/DL H 4.5-19.8 03/04/2018 8:42pm 03/04/2018 9: 46pm Magnesium Level 1.6 MG/DL 1.3-2.1 03/06/2018 6:0603/06/2018 7:24am Total Bilirubin 0.7 mg/dL 0.2-1.2 03/05/2018 8:0503/05/2018 8:51am Aspartate Amino Transf (AST/SGOT) 18 IU/L 5-34 03/05/2018 8:052017 8:51am Alanine Aminotransferase (ALT/SGPT) 18 IU/L 0-55 03/05/2018 8:0503/2018 8:51am Total Protein 7.6 g/dL 6.5-8.1 03/05/2018 8:0503/05/2018 8:51am Albumin 3.1 g/dL L 3.5-5.0 03/05/2018 8:0503/05/2018 8:51am Globulin 4.5 g/dL H 2.3-3.5 03/05/2018 8:0503/05/2018 8:51am Albumin/Globulin Ratio 0.7 L 0.8-2.0 03/05/2018 8:0503/05/2018 8: 51am Alkaline Phosphatase 59 IU/L 40-150 03/05/2018 8:0503/05/2018 8: 51am Vitamin B12 Level 310 pg/mL 213-816 03/06/2018 6:06am 03/06/2018 7: 59am Folate 16.0 ng/mL H 7.0-15.4 03/06/2018 6:06am 03/06/2018 7:59am Thyroid Stimulating Hormone (TSH) 0.058 uIU/mL L 0.350-4.940 03/06/2018 6 :06am 03/06/2018 7:34am Microbiology Results Procedure Source Organism/Result Collection Date/Time Result Date/Time Result Status Blood Culture Blood NO GROWTH AFTER 72 HOURS 8:42pm 03/07/2018 9:35pm Preliminary Procedures Procedure Status Date Provider(s) CT of abdomen and pelvis without contrast Active 03/05/18 OFE BORGES MD Encounters Encounter Location Arrival/Admit Date Discharge/Depart Date Attending Provider Discharged Inpatient [facility] 03/04/18 11:33pm 12:32pm OFE BORGES MD
--- OUTSIDE RECORDS SUMMARY | 2018-03-14 14:40 | XMS REPORT | Clinical Summary ---
Author Author [facility] Organization [facility] Address Unknown Phone Unavailable Care Team Providers Care Integration Consultant Name Role Phone Sara Jones MD PCP [...] right ring finger; Aftercare following surgery 05/06/2017 [facility] Orthopedic Surgery Cezar Jordan MD Encounter 05/06/2017 [...] left 04/25/2017 Anesthesia Orthopedic Surgery Varsha Craft, APPLICATION COORDINATOR Event 04/13/2017 Procedure visit Neurology Jing Zambrano [...] finger of right hand, unspecified finger after 03/13/2017 Family History Medical History Relation Name Comments [...] finger procedure are in the results section. [place] INJECT TENDON Routine 04/04/2017 Trigger finger, right Results for this SHEATH/LIGAMENT 10:44 AM CDT ring finger procedure are in the results section. after 03/13/2017 Results * XR Knee 1 Or 2 Vw Bilateral (08/09/2017 3:25 PM) Specimen [facility] [address] [place] [address] Narrative AP and lateral of the left [...] dual chamber electronic pacemaker- Specimen Performing Laboratory [facility] [address] [place] [address] * Estimated GFR (04/25/2017 2:13 PM) Component [...] and Americans. Specimen Performing Laboratory Plasma specimen [facility] DEPARTMENT OF PATHOLOGY AND GENOMIC MEDICINE [address] [place] [id number] * CBC hemogram (04/25/2017 2:13 PM) Component [...] 0.00 /100 WBC Specimen Performing Laboratory Blood [facility] DEPARTMENT OF PATHOLOGY AND GENOMIC MEDICINE [address] [place] [address] * Hemoglobin A1c (04/25/2017 2:13 PM) Component [...] type 1 diabetes. Specimen Performing Laboratory Blood [facility] DEPARTMENT OF PATHOLOGY AND GENOMIC MEDICINE [address] [place] [address] * Comprehensive metabolic panel (04/25/2017 2:13 PM) [...] Protein 7.1 6.3 - 8.3 g/dL Comment: Artemas 4.6-7.0 g/dL 1 week 4.4-7.6 g/dL 7 [...] 1.2 mg/dL Specimen Performing Laboratory Plasma specimen [facility] DEPARTMENT OF PATHOLOGY AND GENOMIC MEDICINE [address] [place] [id number] * Hand/Upper Extremity Injection/Arthrocentesis (04/04/2017 10:44 AM) Narrative Cezar Jordan MD 04/04/2017 10:44 AM Hand/Upper Extremity Injection/Arthrocentesis Date/Time: 04/04/2017 10:40 AM Consent given by: patient Site marked: site marked Timeout: Immediately prior to procedure a time out was called to verify the correct patient, procedure, equipment, director decision support and site/side marked as required Supporting Documentation [...] to verify the correct patient, procedure, equipment, director decision support and site/side marked as required Injury Location [...] (04/04/2017 10:06 AM) Specimen Performing Laboratory [facility] [address] [place] [address] Narrative X-rays of theright hand are done.PA, lateral, oblique xrays demonstrate no evidence of a fracture, dislocation.There is moderate first carpometacarpal joint arthritis.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 after 03/13/2017 Insurance Payer Benefit Subscriber ID Type Phone Address Plan / Group MEDICARE MEDICARE xxxxxxxxxx Medicare [place], [place] PART A AND B COMMERCIAL MISC MISC xxxxxxxxxxxxxx Commercial COMMERCIAL ANNIE HENDERSON Personal/F Self 1950 Home: [address] [facility] [address]
[2018-03-14 18:27] LABS: BASOPHILS # (AUTO) 0.1 (0.0-0.1); BASOPHILS % 0.7 % (0.0-1.0); EOSINOPHILS # (AUTO) 0.2 (0.0-0.4); EOSINOPHILS % 1.6 % (0.0-6.0); HEMATOCRIT 40.4 % (34.2-44.1); LYMPHOCYTES # (AUTO) 4.9 (1.0-3.2); LYMPHOCYTES % 39.3 % (18.0-39.1); MEAN CORPUSCULAR HGB CONC 32.2 g/dL (31-35); MONOCYTES # (AUTO) 0.8 (0.2-0.8); MONOCYTES % 6.2 % (4.4-11.3); NEUTROPHILS # (AUTO) 6.3 (2.1-6.9); NEUTROPHILS % 51.5 % (38.7-80.0); PLATELET COUNT 463 x10e3/uL (140-360); RED BLOOD COUNT 4.49 x10e6/uL (3.6-5.1); RED CELL DISTRIBUTION WIDTH 13.9 % (11.7-14.4)
[2018-03-14 18:43] LABS: ANION GAP 18.7 mmol/L (8-16); CALCIUM 11.6 mg/dL (8.4-10.2); CREATININE, SERUM 1.23 mg/dL (0.57-1.11)
[2018-03-14 18:44] LABS: POTASSIUM 4.7 mmol/L (3.5-5.1)
[2018-03-14 19:16] LABS: BILIRUBIN,URINE NEGATIVE (NEGATIVE); CLARITY,URINE CLEAR (CLEAR); COLOR,URINE YELLOW (YELLOW); KETONES,URINE NEGATIVE (NEGATIVE); LEUKOCYTE ESTERASE ,URINE NEGATIVE (NEGATIVE); NITRITE,URINE NEGATIVE (NEGATIVE); PROTEIN,URINE DIPSTICK NEGATIVE (NEGATIVE); URINE UROBILINOGEN 0.2 mg/dL (0.2 - 1)
[2018-03-14 19:27] LABS: RBC,URINE 0-5 /HPF (0-5); WBC,URINE (MAN) 0-5 /HPF (0-5)
[2018-03-14 19:28] LABS: AMORPHOUS SEDIMENT,URINE FEW (FEW); EPITHELIAL CELLS,URINE RARE /LPF; MUCUS,URINE MODERATE (RARE)
[2018-03-14 21:30] VITALS: BP 122/78
== END 2018-03-14 21:31 | disposition home or self-care (01) ==
LOC: ER 14:37
CPT/HCPCS: 36415; 80048; 81001; 85025; 87086; 99284